=== PATIENT | male | born 1950 | race Caucasian/White ===

== ENCOUNTER 2020-02-19 11:15 | Inpatient (IN) ==
[2020-02-19] MEDS ORDERED: SODIUM CHLORIDE 0.9% 500 ML IV STA (11:43)
[2020-02-19] MEDS ORDERED: ACETAMINOPHEN 500 MG TABLET PO STA (11:43)
[2020-02-19] MEDS ORDERED: ACETAMINOPHEN 325 MG/10.15 ML UDCUP ONE (12:01)
[2020-02-19 12:22] LABS: Basophils # 0.1 10*3/uL (0.0-0.2); Basophils % 0.7 % (0.0-0.8); Eosinophils % 0.1 % (0.00-10.9); Hematocrit 38.4 VOL% (42.0-52.0); Immature Granulocytes % 0.5 %; Immature Granulocytes Absolute 0.07 #; Lymphocytes # 0.6 10*3/uL (1.4-4.0); Lymphocytes % 4.5 % (21.2-54.2); Mean Corpuscular HGB Conc 33.9 GM/DL (32-36); Mean Corpuscular Volume 87.9 FL (87-102); Monocytes % 10.3 % (1.7-12.7); Neutrophils % 83.9 % (38.7-73.9); Platelet Count 432 T/CUMM (130-400); Red Blood Count 4.37 MC/CUMM (3.8-5.5); Red Cell Distribution Width 13.9 % (9.3-17.3); White Blood Count 13.5 T/CUMM (4-12)
[2020-02-19 12:36] LABS: Albumin 3.7 G/DL (3.4-5.0); Bilirubin,Total 0.4 MG/DL (0.2-1.0); Calcium 8.7 MG/DL (8.5-10.1); Ferritin 219.3 ng/ml (26-388); Osmolality,Calculated 241.2 MOS/KG (273-304)
[2020-02-19 12:57] LABS: Anisocytosis 1+; Band Neutrophils 9 % (0-10); Lymphocytes 5 % (20-55); Platelet Estimate Normal; Segmented Neutrophils 76 % (50-85); Total Cells Counted 100
[2020-02-19] MEDS ORDERED: AZITHROMYCIN INJ 500 MG in SODIUM CHLORIDE 0.9% 250 ML IV STA (12:57)
[2020-02-19 12:58] LABS: Macrocytosis Slight
[2020-02-19] MEDS ORDERED: THIAMINE INJ 100 MG, FOLIC ACID INJ 1 MG, MULTIVITAMIN INJ 10 ML in SODIUM CHLORIDE 0.9... IV SCH (13:30)
[2020-02-19 13:39] LABS: Apearance,Urine CLEAR (Clear); Bilirubin,Urine Negative (Negative); Blood, Urine Moderate mg/dL (Negative); Glucose,Urine (UA) Negative (Negative); Ketones,Urine 5 mg/dL (Negative); Mucus,Urine Occasional /LPF (Occasional); Nitrite,Urine Negative (Negative); Protein,Urine 30 MG/DL; RBC,Urine 44 /HPF (0-4); Urine Color Yellow (Yellow); Urine Specific Gravity 1.013 (1.001-1.035); Urine Urobilinogen < 2.0 EU/DL (0.2-1.0); WBC,Urine 1 /HPF (0-6)
[2020-02-19] MEDS ORDERED: SODIUM CHLORIDE 3% INJ 500 ML IV SCH (14:00)
[2020-02-19] MEDS ORDERED: ALBUTEROL 2.5 MG/3 ML NEB RESP TX PRN (14:02)
[2020-02-19] MEDS ORDERED: ONDANSETRON 4 MG/2 ML VIAL IV PRN (14:02)
[2020-02-19] MEDS ORDERED: SODIUM CHLORIDE 0.9% 1,000 ML IV STA (14:12)
[2020-02-19] MEDS ORDERED: PANTOPRAZOLE 40 MG TABLET PO SCH (14:30)
[2020-02-19] MEDS: SODIUM CHLORIDE 0.9% 1,000 ML IV SCH ×2 (15:00→23:32)
[2020-02-19] MEDS ORDERED: SODIUM CHLORIDE 3% INJ 100 ML IV SCH (15:30)
[2020-02-19] MEDS: cefTRIAXone 1,000 MG in SYRINGE 1 EACH IV SCH (16:18)
[2020-02-19] MEDS: ENOXAPARIN 40 MG/0.4 ML SYRINGE SUBCUT SCH (16:22)
[2020-02-19] MEDS ORDERED: SODIUM CHLORIDE 3% IV SCH (19:00)
[2020-02-19 19:31] LABS: PT Patient Result 11.2 SECS (9.8-11.9)
[2020-02-19] MEDS: PRAMIPEXOLE 0.25 MG TABLET PO SCH (21:06)
[2020-02-19] MEDS: ZALEPLON 5 MG CAPSULE PO PRN (21:07)
[2020-02-20 04:23] LABS: Basophils # 0.1 10*3/uL (0.0-0.2); Basophils % 0.8 % (0.0-0.8); Hematocrit 37.7 VOL% (42.0-52.0); Hemoglobin 12.6 GM/DL (14.0-18.0); Immature Granulocytes % 0.3 %; Immature Granulocytes Absolute 0.03 #; Lymphocytes # 1.8 10*3/uL (1.4-4.0); Lymphocytes % 18.6 % (21.2-54.2); Mean Corpuscular HGB Conc 33.4 GM/DL (32-36); Mean Corpuscular Volume 89.5 FL (87-102); Mean Platelet Volume 8.1 FL (9.6-12.0); Monocytes % 13.9 % (1.7-12.7); Neutrophils % 66.4 % (38.7-73.9); Platelet Count 409 T/CUMM (130-400); Red Blood Count 4.21 MC/CUMM (3.8-5.5); Red Cell Distribution Width 14.4 % (9.3-17.3); White Blood Count 9.5 T/CUMM (4-12)
[2020-02-20 05:14] LABS: Calcium 7.9 MG/DL (8.5-10.1); Osmolality,Calculated 262.5 MOS/KG (273-304); Thyroid Stimulating Hormone 23.2 uIU/ml (0.358-3.74)
[2020-02-20] MEDS: SODIUM CHLORIDE 0.9% 1,000 ML IV SCH ×3 (07:34→22:57)
[2020-02-20] MEDS: PANTOPRAZOLE 40 MG VIAL IV SCH (08:48)
[2020-02-20 09:08] LABS: Total Protein 7.4 G/DL (6.4-8.3)
[2020-02-20 10:16] LABS: Free T4 (Free Thyroxine) 0.58 NG/DL (0.76-1.46)
[2020-02-20] MEDS ORDERED: AZITHROMYCIN INJ 250 MG in SODIUM CHLORIDE 0.9% 250 ML IV SCH (13:00)
[2020-02-20] MEDS ORDERED: LABETALOL 20 MG/4 ML SYRINGE IV ONE (13:04)
[2020-02-20] MEDS ORDERED: NIFEdipine 10 MG CAPSULE PO PRN (14:22)
[2020-02-20] MEDS ORDERED: amLODIPine 10 MG TABLET PO ONE (14:43)
[2020-02-20] MEDS: ENOXAPARIN 40 MG/0.4 ML SYRINGE SUBCUT SCH (14:52)
[2020-02-20] MEDS: cefTRIAXone 1,000 MG in SYRINGE 1 EACH IV SCH (14:52)
[2020-02-20] MEDS: OLMESARTAN 20 MG TABLET PO SCH (15:02)
[2020-02-20] MEDS: LIOTHYRONINE 25 MCG TABLET PO SCH (15:03)
[2020-02-20] MEDS: PRAMIPEXOLE 0.25 MG TABLET PO SCH (20:47)
[2020-02-20] MEDS: ZALEPLON 5 MG CAPSULE PO PRN (20:52)
[2020-02-21 05:32] LABS: Basophils % 0.5 % (0.0-0.8); Eosinophils # 0.2 10*3/uL (0.0-0.87); Eosinophils % 2.4 % (0.00-10.9); Hematocrit 32.4 VOL% (42.0-52.0); Hemoglobin 10.8 GM/DL (14.0-18.0); Immature Granulocytes % 0.7 %; Immature Granulocytes Absolute 0.05 #; Lymphocytes # 1.4 10*3/uL (1.4-4.0); Lymphocytes % 17.9 % (21.2-54.2); Mean Corpuscular HGB Conc 33.3 GM/DL (32-36); Mean Corpuscular Volume 89.8 FL (87-102); Mean Platelet Volume 8.3 FL (9.6-12.0); Monocytes % 12.7 % (1.7-12.7); Neutrophils % 65.8 % (38.7-73.9); Platelet Count 323 T/CUMM (130-400); Red Blood Count 3.61 MC/CUMM (3.8-5.5); Red Cell Distribution Width 14.4 % (9.3-17.3); White Blood Count 7.6 T/CUMM (4-12)
[2020-02-21 05:55] LABS: Calcium 7.7 MG/DL (8.5-10.1); Osmolality,Calculated 259.8 MOS/KG (273-304)
[2020-02-21 06:06] LABS: Anisocytosis 1+; Band Neutrophils 8 % (0-10); Lymphocytes 17 % (20-55); Platelet Estimate Normal; Segmented Neutrophils 67 % (50-85); Smudge Cells Few; Total Cells Counted 100
[2020-02-21] MEDS ORDERED: LEVOTHYROXINE 50 MCG TABLET PO SCH (06:30)
[2020-02-21] MEDS: LIOTHYRONINE 25 MCG TABLET PO SCH (06:37)
[2020-02-21] MEDS: SODIUM CHLORIDE 0.9% 1,000 ML IV SCH (07:05)
[2020-02-21 08:59] LABS: Total Protein (Chem) 7.4 G/DL (6.4-8.3)
[2020-02-21] MEDS ORDERED: DEXAMETHASONE INJ 6 MG in SODIUM CHLORIDE 0.9% 50 ML IV SCH ×2 (09:00→10:00)
[2020-02-21] MEDS ORDERED: amLODIPine 10 MG TABLET PO SCH (09:00)
[2020-02-21 09:09] LABS: Albumin (SPE) 4.2 G/DL (3.2-5.3); Albumin (SPE) Rel % 56.2 %; Alpha 1 (SPE) 0.2 G/DL (0.1-0.4); Alpha 2 (SPE) 0.8 G/DL (0.4-1.0); Alpha 2 (SPE) Rel % 10.3 %; Beta (SPE) 0.6 G/DL (0.5-1.1); Beta (SPE) Rel % 8.4 %; Gamma (SPE) 1.6 G/DL (0.7-1.7); Gamma (SPE) Rel % 22.1 %
[2020-02-21] MEDS: OLMESARTAN 20 MG TABLET PO SCH (10:06)
[2020-02-21] MEDS: PANTOPRAZOLE 40 MG VIAL IV SCH (10:06)
[2020-02-21] MEDS ORDERED: DEXAMETHASONE 4 MG TABLET PO ONE (10:13)
[2020-02-21 11:28] LABS: Immuno Free Light Chain Kappa 4.12 MG/DL (0.33-1.94); Immuno Free Light Chain Lambda 3.42 MG/DL (0.57-2.63); Immuno Free Light Chain Ratio 1.2 MG/DL (0.26-1.65)
[2020-02-21 12:13] VITALS: BP 150/76
== END 2020-02-21 12:30 | disposition home or self-care (01) | DRG 177 ==
LOC: N.ED 11:15 → N.EDINP 14:02 → SUATTDRO 14:02 → N.CC 14:42 → N.2E 02-20 13:24
PROVIDERS: ADMIT Internal Medicine; ATTEND Emergency Medicine

== ENCOUNTER 2021-06-17 17:22 | Inpatient (IN) ==
[2021-06-17 21:11] LABS: Basophils % 0.1 % (0.0-0.8); Immature Granulocytes % 0.6 %; Lymphocytes # 0.8 10*3/uL (1.4-4.0); Lymphocytes % 5.1 % (21.2-54.2); Mean Corpuscular HGB Conc 31.6 GM/DL (32-36); Mean Corpuscular Volume 89.4 FL (87-102); Mean Platelet Volume 8.8 FL (9.6-12.0); Monocytes % 1.1 % (1.7-12.7); Neutrophils % 93.1 % (38.7-73.9); Platelet Count 423 T/CUMM (130-400); Red Blood Count 4.25 MC/CUMM (3.8-5.5); Red Cell Distribution Width 14.9 % (9.3-17.3); White Blood Count 15.7 T/CUMM (4-12)
[2021-06-17 21:30] LABS: Lymphocytes 3 % (20-55); Segmented Neutrophils 93 % (50-85); Total Cells Counted 100
[2021-06-17 21:31] LABS: Albumin 3.2 G/DL (3.4-5.0); Bilirubin,Total 0.4 MG/DL (0.20-1.00); Calcium 9.3 MG/DL (8.5-10.1); Osmolality,Calculated 267.8 MOS/KG (273-304); Platelet Estimate Increased; Potassium 4.3 MMOL/L (3.5-5.1); Total Protein 8.8 G/DL (6.4-8.2)
[2021-06-17] MEDS ORDERED: SODIUM CHLORIDE 0.9% 1,000 ML IV STA (21:42)
[2021-06-17] MEDS ORDERED: diphenhydrAMINE 50 MG/1 ML VIAL IV STA (21:43)
[2021-06-17] MEDS ORDERED: LEVOFLOXACIN INJ 500 MG/100 ML PREMIX IV STA (21:43)
[2021-06-17] MEDS ORDERED: ALBUTEROL/IPRATROPIUM 3 ML NEB RESP TX STA (21:58)
[2021-06-17] MEDS ORDERED: LORazepam 2 MG/1 ML VIAL ONE (22:07)
[2021-06-17] MEDS ORDERED: LORazepam 2 MG/1 ML VIAL IV STA (22:09)
[2021-06-18 00:46] LABS: Thyroid Stimulating Hormone 1.43 uIU/ml (0.358-3.74)
[2021-06-18] MEDS ORDERED: SODIUM CHLORIDE 0.9% 1,000 ML IV STA (01:39)
[2021-06-18 02:09] LABS: PT Patient Result 11.3 SECS (10.5-12.0); Partial Thromboplastin Time 34.1 SECS (23.8-32.1)
[2021-06-18] MEDS ORDERED: POTASSIUM CHLORIDE RIDER 10 MEQ/100 ML PREMIX IV PRN (02:33)
[2021-06-18] MEDS ORDERED: MAGNESIUM SULF RIDER 2 GM/50 ML PREMIX IV PRN (02:33)
[2021-06-18] MEDS ORDERED: MAGNESIUM SULF RIDER 4 GM/100 ML PREMIX IV PRN (02:33)
[2021-06-18] MEDS ORDERED: GLUCAGON 1 MG VIAL IM PRN (02:33)
[2021-06-18] MEDS ORDERED: hydrALAZINE 20 MG/1 ML VIAL IV PRN (02:33)
[2021-06-18] MEDS ORDERED: ONDANSETRON 4 MG/2 ML VIAL IV PRN (02:33)
[2021-06-18] MEDS ORDERED: ACETAMINOPHEN 325 MG TABLET PO PRN (02:33)
[2021-06-18] MEDS ORDERED: DEXTROSE 50% 25 GM/50 ML SYRINGE IV PRN (02:48)
[2021-06-18 04:29] LABS: Basophils % 0.1 % (0.0-0.8); Hematocrit 36.2 VOL% (42.0-52.0); Hemoglobin 11.5 GM/DL (14.0-18.0); Immature Granulocytes % 0.4 %; Immature Granulocytes Absolute 0.05 #; Lymphocytes % 7.1 % (21.2-54.2); Mean Corpuscular HGB Conc 31.8 GM/DL (32-36); Mean Corpuscular Volume 87.9 FL (87-102); Mean Platelet Volume 8.9 FL (9.6-12.0); Monocytes % 4.1 % (1.7-12.7); Neutrophils % 88.3 % (38.7-73.9); Platelet Count 435 T/CUMM (130-400); Red Blood Count 4.12 MC/CUMM (3.8-5.5); Red Cell Distribution Width 14.7 % (9.3-17.3); White Blood Count 13.9 T/CUMM (4-12)
[2021-06-18 04:38] LABS: Bilirubin,Urine Negative (Negative); Blood, Urine Small mg/dL (Negative); Cystine Crystals,Urine Positive /HPF (<1); Glucose,Urine (UA) 50 mg/dL (Negative); Hyaline Casts,Urine 3 /LPF (0-3); Ketones,Urine Negative (Negative); Mucus,Urine Occasional /LPF (Occasional); Nitrite,Urine Negative (Negative); Protein,Urine Negative; RBC,Urine 27 /HPF (0-4); Squamous Epithelial Cell,Urine Occasional /HPF (0-10); Urine Appearance CLOUDY (Clear); Urine Color Yellow (Yellow); Urine Specific Gravity 1.011 (1.001-1.035); Urine Urobilinogen < 2.0 EU/DL (<2.0)
[2021-06-18 05:14] LABS: Calcium 9.1 MG/DL (8.5-10.1); Osmolality,Calculated 270.4 MOS/KG (273-304); Potassium 4.1 MMOL/L (3.5-5.1); Risk Ratio 2.39
[2021-06-18] MEDS: ENOXAPARIN 40 MG/0.4 ML SYRINGE SUBCUT SCH (06:18)
[2021-06-18] MEDS: LEVOTHYROXINE 125 MCG TABLET PO SCH (08:38)
[2021-06-18] MEDS: SODIUM CHLORIDE 0.9% 1,000 ML IV SCH ×3 (08:38→21:41)
[2021-06-18] MEDS: PANTOPRAZOLE 40 MG VIAL IV SCH (10:15)
[2021-06-18] MEDS: lisinopriL 10 MG TABLET PO SCH (10:15)
[2021-06-18] MEDS ORDERED: DEXTROSE 10% 250 ML BAG IV PRN (11:00)
[2021-06-18] MEDS: amLODIPine 2.5 MG TABLET PO SCH (14:15)
[2021-06-18] MEDS ORDERED: HYDROcod/ACETAMIN 7.5-325 MG/15 ML UDCUP PO PRN (18:07)
[2021-06-18] MEDS ORDERED: HYDROcod/ACETAMIN 7.5-325 MG/15 ML UDCUP PER TUBE PRN (18:08)
[2021-06-18] MEDS: ALBUTEROL 2.5 MG/3 ML NEB RESP TX SCH (19:19)
[2021-06-18] MEDS ORDERED: LEVOFLOXACIN INJ 750 MG/150 ML PREMIX IV SCH (21:00)
[2021-06-18] MEDS ORDERED: PRAMIPEXOLE 0.25 MG TABLET PO SCH (21:00)
[2021-06-19] MEDS: ALBUTEROL 2.5 MG/3 ML NEB RESP TX SCH ×2 (00:06→07:50)
[2021-06-19] MEDS: LEVOTHYROXINE 125 MCG TABLET PO SCH (05:43)
[2021-06-19] MEDS: SODIUM CHLORIDE 0.9% 1,000 ML IV SCH (06:07)
[2021-06-19 07:22] LABS: Calcium 8.9 MG/DL (8.5-10.1); Osmolality,Calculated 264.7 MOS/KG (273-304); Potassium 4.2 MMOL/L (3.5-5.1)
[2021-06-19] MEDS: amLODIPine 2.5 MG TABLET PO SCH (09:21)
[2021-06-19] MEDS: lisinopriL 10 MG TABLET PO SCH (09:21)
[2021-06-19] MEDS: ENOXAPARIN 40 MG/0.4 ML SYRINGE SUBCUT SCH (09:21)
[2021-06-19] MEDS: PANTOPRAZOLE 40 MG VIAL IV SCH (09:21)
[2021-06-19 11:53] VITALS: BP 137/72
== END 2021-06-19 14:44 | disposition home or self-care (01) | DRG 178 ==
LOC: N.ED 17:22 → N.EDINP 06-18 03:07 → N.5E 06-18 14:51
PROVIDERS: ADMIT Internal Medicine; ATTEND Internal Medicine